=== PATIENT | male | born 1985 | race Caucasian/White ===

== ENCOUNTER → 2021-04-10 11:57 | Outpatient (CLI) | payer OTHER, SELFPAY ==
[2021-04-10] MEDS: COVID-19 VACC, Ad26(JANSSEN)/PF 0.5 ML IM (12:03)
== END ==
PROVIDERS: Family Provider Family Medicine; PCP Family Medicine; Visit Provider Internal Medicine
DX: Z23 Encounter for immunization (principal)
CPT/HCPCS: 0031A; 91303